=== PATIENT | female | born 1950 | race Caucasian/White ===

== ENCOUNTER 2020-02-05 09:55 | Outpatient (REF) | payer MEDICARE, OTHER, SELFPAY | END 2020-02-05 09:56 | disposition home or self-care (01) | LOC: HO.WFDLDS 09:55 | PROVIDERS: PCP Internal Medicine; Visit Provider Internal Medicine | DX: Z20.828 Contact with and (suspected) exposure to other viral communicable diseases (principal) | CPT/HCPCS: C9803; U0003 ==

== ENCOUNTER 2022-12-11 01:26 | Emergency (ER) | payer MEDICARE, OTHER, SELFPAY ==
--- NOTE | ~2022-12-11 | US_ITS ---
EXAMINATION: US VENOUS ULTRASOUND WITH DOPPLER LOWER EXTREMITY, LEFT CLINICAL INFORMATION: Left calf pain COMPARISON: None available. TECHNIQUE: Ultrasound of the deep veins is performed from the hip to the calf with compression sonography and color and pulse Doppler assessment. Spectral analysis with color-flow imaging is performed. FINDINGS: There is normal venous compression and respiratory variation and augmented flow. The visualized common femoral vein, superficial femoral vein, profunda femoral vein, popliteal vein, and the trifurcation region shows no evidence of deep venous thrombosis. There is no significant popliteal fossa cyst. If the patient's symptoms persist, followup ultrasound in 5 days 7 days might be of value to exclude proximal propagation from a non-visualized calf vein. US/US venous duplex LE LT IMPRESSION: No DVT demonstrated in the left lower extremity.
[2022-12-11 01:31] VITALS: BP 160/71; PULSE 86; RESP 16; TEMP 36.8; O2SAT 98; BMI 26.9
[2022-12-11 01:44] VITALS: BP 165/71; PULSE 88; RESP 18; TEMP 37.2; O2SAT 97
[2022-12-11 01:54] LABS: MANUAL DIFF FLAG NO
[2022-12-11 01:57] LABS: Basophils Percent Auto 0.5 % (0-2); Eosinophils Absolute Auto 0.2 X10*3/uL (0.0-0.4); Eosinophils Percent Auto 2.9 % (0-4); Hematocrit 39.6 % (37.0-47.0); Hemoglobin 13.4 g/dl (12.0-16.0); Imm Gran Abs Auto 0.01 X10*3/uL (0.00-0.03); Imm Gran Pct Auto 0.2 % (0.0-0.4); Lymphocytes Absolute Auto 1.8 X10*3/uL (1.2-4.9); Lymphocytes Percent Auto 29.1 % (20-40); Mean Corpuscular HGB Conc 33.8 g/dl (31.0-35.0); Mean Corpuscular Hemoglobin 30.4 pg (27.0-33.0); Mean Corpuscular Volume 89.8 fL (80.0-98.0); Mean Platelet Volume 10.7 fL (9.4-12.3); Monocytes Absolute Auto 0.6 X10*3/uL (0.1-1.2); Neutrophils Absolute Auto 3.5 x10*3/uL (2.0-8.3); Neutrophils Percent Auto 57.3 % (45-73); Platelet Count 184 X10*3/uL (160-400); Red Blood Count 4.41 X10*6/uL (4.20-5.50); Red Cell Distribution Width 11.9 % (11.0-16.0); White Blood Count 6.1 X10*3/uL (4.8-10.8)
[2022-12-11 02:11] LABS: Appearance Urine Clear; Color Urine Yellow; Glucose Urine UA Negative (Negative); Leukocyte Esterase Urine Small (1+) (Negative); Nitrite Urine Negative (Negative); PH 5.5 (5.0-9.0); UMIC TRIGGER UACC YES; Urine Blood Negative (Negative); Urine Ketones Negative (Negative); Urine Protein Negative (Neg-Trace)
[2022-12-11 02:14] LABS: Anion Gap 18 (12-20); Blood Urea Nitrogen 17 mg/dL (9-16); Calcium 9.9 mg/dL (8.4-10.2); Carbon Dioxide 22 mmol/L (22-29); Chloride 108 mmol/L (96-108); Creatinine Clr Calc Pharmacy 59.1; Estimated Glomerular Filt Rate > 60; Glucose Random 138 mg/dL (60-115); Potassium 3.7 mmol/L (3.3-5.1); Sodium 144 mmol/L (135-145)
[2022-12-11 02:17] LABS: Bacteria Urine None Seen (None Seen); Hyaline Casts Urine 0-2 /LPF (0-2); RBC Urine 0-2 /HPF (0-2); Squamous Epithelial Cell Urine 0-2 /HPF (0-2); UACC Culture Trigger YES
[2022-12-11 02:20] LABS: Troponin-I High Sensitivity < 2.7 ng/L (<3.5-17.0)
[2022-12-11 04:11] VITALS: BP 149/71; PULSE 78; RESP 16; TEMP 37.1; O2SAT 96
--- NOTE | 2022-12-11 05:06 | ED.EXTPRO ---
HPI - Extremity Problem General Chief complaint: Extremity Problem Stated complaint: Left leg pain Time Seen by Provider: 12/11/22 04:51 Source: patient and family Mode of arrival: ambulatory Limitations: no limitations History of Present Illness HPI Narrative: 72-year-old female who presents emergency department for evaluation of left calf pain. Patient states that she went to [facility] 3 days prior, she traveled by train, she states that it was a [address]. She states that yesterday morning at 05:00 hours she woke up with left calf pain. She states the pain is a constant throbbing pain which has moved up her leg and is now also in the back of her leg. She states that her leg does not feel swollen but the back of her knee does feel swollen. He she states she took Tylenol without any relief. She denied fever, chills, chest pain, shortness of breath, dyspnea on exertion. She took Tylenol yesterday at around 17:00 hours with no relief for pain. Related Data Previous Rx's Medication Instructions Recorded oxycodone 5 mg tablet 5 mg PO Q4H PRN pain #14 tabs 12/11/22 Allergies Allergy/AdvReac Type Severity Reaction Status Date / Time No Known Allergies Allergy Unverified 11/15/19 15:56 Review of Systems Review of Systems: Yes all other systems are reviewed and are negative [facility] Past Medical History [facility] Narrative: Past medical history: Hypertension, hyperlipidemia. Surgical history: Hysterectomy-patient does not remember why she got the hysterectomy, small-bowel obstruction secondary to adhesions. Social history: She is and her is here in the emergency department with her. She denies tobacco use. She occasionally drinks alcohol. She denies drug use. Social History Social History Alcohol intake: current Alcohol intake frequency: holidays/special occasions only Smoked in Last 30 Days: No Use of substances other than those prescribed or required for medical reasons: No Advance Directives: No Advance Directives Information Provided: No Physical Exam Vital Signs: Vital Signs: Last Vital Signs Temp 98.4 F 12/11/22 06:21 Pulse 70 12/11/22 06:21 Resp 14 12/11/22 06:21 BP 118/65 12/11/22 06:21 Pulse Ox 96 12/11/22 06:21 O2 Del Method Room Air 12/11/22 06:21 BMI result Body Mass Index 26.9 Vital signs revealed an elevated blood pressure of 149/71 exam: General: Awake, alert in no distress Head: Normocephalic, atraumatic EENT: PERRL, Lids normal, sclera normal, conjunctiva normal, nose normal , ears normal, throat without erythema or exudates Neck: Supple, no adenopathy, trachea midline and nontender Lung: breath sounds symmetric, no wheezing, rales or rhonchi Chest: symmetric movement, nontender Heart: regular rate and rhythm, normal S1, S2 no murmurs or rubs Abdomen: soft, non-tender, nondistended, normal bowel sounds Back: no vertebral tenderness, no CVAT Extremities: Extremities appear to be symmetric, she does have varicose veins to both lower extremities. There is tenderness palpation of the posterior calf and the patella fossa with no erythema, increased warmth or palpable cords. Skin: no rashes, no lesion, normal color and warmth Neuro: Awake, alert, oriented, normal speech, cranial nerves intact, moves all extremities symmetrically Psych: Pleasant, cooperative Medications Administered Discontinued Medications Generic Name Dose Route Start Last Admin Trade Name Alexq PRN Reason Stop Dose Admin Acetaminophen 975 mg 12/11/22 05:06 12/11/22 05:13 Acetaminophen 325 Mg Tablet PO 12/11/22 05:07 975 mg ONCE STA Administration Oxycodone HCl 5 mg 12/11/22 05:06 12/11/22 05:13 Oxycodone Hcl Immed Release 5 Mg Tablet PO 12/11/22 05:07 5 mg ONCE STA Administration Medical Decision Making Medical Decision Making [facility] Narrative: 72-year-old female with history of hypertension, hyperlipidemia who presents emergency department for evaluation of left calf and posterior patella pain x1 day, patient had a recent train trip to [facility] with a total round trip of 6 hours. Vital signs were normal except for elevated blood pressure. The patient did have tenderness palpation of her left posterior calf as well as her left popliteal fossa. Following evaluation was ordered: CBC, CMP, troponin, EKG, duplex ultrasound. patient was ordered to get Tylenol 975 mg and oxycodone 5 mg orally for her pain. 06:35 patient's laboratory evaluation was unremarkable. Duplex ultrasound of the left lower extremity did not reveal any evidence for DVT. Patient did get pain relief after being treated With the above pain medications. Patient's symptoms are most likely secondary to musculoskeletal sprain however I did tell her that a DVT cannot be ruled out with 1 ultrasound and she needs a repeat ultrasound in 4-7 days to rule out propagation of undetected clot. I also told the patient that if she develops symptoms such as fever, chills, cough, pleuritic chest pain, shortness of breath, dyspnea on exertion she should return to the emergency department for re-evaluation. Differential Diagnosis Differential Diagnoses: The differential diagnosis associated with the presentation includes Differential diagnosis includes was not limited to calf DVT, thigh DVT, thrombophlebitis, muscle sprain Admission/Observation Consideration of admission/observation: Escalation of care including admission/observation considered Lab Data MDM Lab Attestation statement: I reviewed the patient's lab results. my interpretation patient's laboratory evaluation is as follows: CBC was normal. BMP was normal. troponin was not elevated. Urinalysis and microscopic was nondiagnostic for urinary tract infection 12/11/22 01:49 12/11/22 01:49 Labs: Lab Results 12/11/22 12/11/22 Range/Units 01:49 01:59 WBC 6.1 (4.8-10.8) X10*3/uL RBC 4.41 (4.20-5.50) X10*6/uL Hgb 13.4 (12.0-16.0) g/dl Hct 39.6 (37.0-47.0) % MCV 89.8 (80.0-98.0) fL MCH 30.4 (27.0-33.0) pg MCHC 33.8 (31.0-35.0) g/dl RDW 11.9 (11.0-16.0) % Plt Count 184 (160-400) X10*3/uL MPV 10.7 (9.4-12.3) fL Immature Gran % (Auto) 0.2 (0.0-0.4) % Neut % (Auto) 57.3 (45-73) % Lymph % (Auto) 29.1 (20-40) % [place] % (Auto) 10.0 (2-11) % Eos % (Auto) 2.9 (0-4) % Baso % (Auto) 0.5 (0-2) % Lymph # (Auto) 1.8 (1.2-4.9) X10*3/uL [place] # (Auto) 0.6 (0.1-1.2) X10*3/uL Eos # (Auto) 0.2 (0.0-0.4) X10*3/uL Baso # (Auto) 0.0 (0.0-0.2) X10*3/uL Abs Immat Gran (auto) 0.01 (0.00-0.03) X10*3/uL Absolute Neuts (auto) 3.5 (2.0-8.3) x10*3/uL Absolute Nucleated RBC 0.000 (0.0-0.012) X10*3/uL Nucleated RBC % (auto) 0.0 (0.0-0.2) /100WBC Hold Blue Top SEE NOTE Sodium 144 (135-145) mmol/L Potassium 3.7 (3.3-5.1) mmol/L Chloride 108 (96-108) mmol/L Carbon Dioxide 22 (22-29) mmol/L Anion Gap 18 (12-20) BUN 17 H (9-16) mg/dL Creatinine 0.92 (0.5-1.4) mg/dL Estim Creat Clear Calc 59.1 Estimated GFR > 60 Random Glucose 138 H (60-115) mg/dL Calcium 9.9 (8.4-10.2) mg/dL Troponin I High Sens < 2.7 (<3.5-17.0) ng/L Urine Color Yellow Urine Appearance Clear Urine pH 5.5 (5.0-9.0) Ur Specific [place] 1.020 (1.005-1.025) Urine Protein Negative (Neg-Trace) mg/dL Urine Glucose (UA) Negative (Negative) mg/dL Urine Ketones Negative (Negative) mg/dL Urine Blood Negative (Negative) Urine Nitrite Negative (Negative) Ur Leukocyte Esterase Small (1+) H (Negative) Urine RBC 0-2 (0-2) /HPF Urine WBC 6-10 H (0-5) /HPF Ur Squamous Epith Cells 0-2 (0-2) /HPF Urine Bacteria None Seen (None Seen) Hyaline Casts 0-2 (0-2) /LPF Radiology Impression Discussion of test interpretation with radiology: I have reviewed the radiologist's reading. Radiologist Impression: US venous duplex LE LT IMPRESSION: No DVT demonstrated in the left lower extremity. Dictated By: Jesus Maldonado MD Independent Historian Clinical information obtained from an independent historian. History obtained from or confirmed by: Spouse External Record Review External record reviewed: Other ( [place] prescription monitoring program -patient has had no prescription for narcotic medications in over a year) Prescription Management I considered prescription management with: Pain Medication Chronic Conditions Patient?s care impacted by: Hypertension and Other ( Hyperlipidemia) Discharge Plan Discharge Clinical Impression: Pain of left calf Patient Disposition: Home, Self-Care Instructions: Leg Pain (ED) Additional Instructions: Your blood work was unremarkable. The duplex ultrasound of your left lower extremity did not reveal any blood clot which is reassuring However, you will need a repeat ultrasound in 4-7 days to make sure that there was not a small blood clot that was too small to detect today. Small blood clots could grow over time so it is important to get a repeat ultrasound to make sure we did not missed anything. Call your doctor on Tuesday morning to schedule a repeat ultrasound next week between Tuesday and Tuesday. Please return to the emergency department if you developed symptoms of a blood clot in your lungs which would include fever, chills, cough, coughing up blood, chest pain that is worse with breathing, shortness of breath, shortness of breath with exertion or any other symptoms that are concerning to you. Take ibuprofen 200 mg pills, 2 pills every 6 hours as needed for pain. Take Tylenol (acetaminophen) 500 mg pills, 2 pills every 4-6 hours as needed for pain. For pain not relieved by ibuprofen or Tylenol take oxycodone 5 mg pills, 1 pill every 4 hours as needed for pain. Do not drive or work while taking this medication since they can cause sleepiness. Oxycodone is a narcotic medication that can be addicting. If you are concerned about addiction you can ask the pharmacist for less pills or do not get this prescription filled. Prescriptions: New oxycodone 5 mg tablet 5 mg PO Q4H PRN (Reason: pain) Qty: 14 0RF Rx Instructions: Patient may request partial fill; Partial Fill upon patient request.
[2022-12-11] MEDS: oxyCODONE HCl Immed Release 5 MG TABLET PO (05:13)
[2022-12-11] MEDS: Acetaminophen 325 MG TABLET 975 MG PO (05:13)
--- NOTE | 2022-12-11 05:38 | PC.NURSE ---
pt returned from ultrasound, resting comfortably at this time. at bedside
[2022-12-11 06:21] VITALS: BP 118/65; PULSE 70; RESP 14; TEMP 36.9; O2SAT 96
== END 2022-12-11 06:47 | disposition home or self-care (01) ==
PROVIDERS: Emergency Provider Emergency Medicine Emergency Medical Services; PCP Internal Medicine
DX: M79.605 Pain in left leg (principal); R82.90 Unspecified abnormal findings in urine
CPT/HCPCS: 36415; 80048; 81001; 84484; 85025; 87086; 93971; 99283; 99284

== ENCOUNTER 2022-12-16 15:07 | Outpatient (REF) | payer MEDICARE, OTHER, SELFPAY ==
--- NOTE | ~2022-12-16 | US_ITS ---
EXAMINATION: US VENOUS ULTRASOUND WITH DOPPLER LOWER EXTREMITY, LEFT CLINICAL INFORMATION: Pain in the leg. COMPARISON: None available. TECHNIQUE: Ultrasound of the deep veins is performed from the hip to the calf with compression sonography and color and pulse Doppler assessment. Spectral analysis with color-flow imaging is performed. FINDINGS: There is normal venous compression and respiratory variation and augmented flow. The visualized common femoral vein, superficial femoral vein, profunda femoral vein, popliteal vein, and the trifurcation region shows no evidence of deep venous thrombosis. There is no significant popliteal fossa cyst. If the patient's symptoms persist, followup ultrasound in 5 days 7 days might be of value to exclude proximal propagation from a non-visualized calf vein. US/US venous duplex LE IMPRESSION: No DVT demonstrated in the left lower extremity.
== END 2022-12-16 15:08 | disposition home or self-care (01) ==
LOC: HO.US 15:07
PROVIDERS: PCP Internal Medicine; Visit Provider Internal Medicine
DX: M79.605 Pain in left leg (principal)
CPT/HCPCS: 93971

== ENCOUNTER 2024-04-13 08:09 | Emergency (ER) | payer MEDICARE, OTHER, SELFPAY ==
--- NOTE | ~2024-04-13 | XR_ITS ---
EXAMINATION: XR FOOT 3 OR MORE VIEWS LEFT HISTORY: pain COMPARISON: There are no prior studies available for comparison. FINDINGS: Three views of the left foot are submitted. Osseous mineralization is normal. There is no fracture or dislocation. The joint spaces are preserved. The soft tissues are unremarkable. XR/XR foot LT min 3V IMPRESSION: Unremarkable examination of the left foot. Electronically signed by: Sharif Ochoa MD 04/13/2024 09:10 AM NOE
[2024-04-13 08:12] VITALS: BP 101/74; PULSE 96; RESP 18; TEMP 36.1; O2SAT 97; BMI 26.8
--- NOTE | 2024-04-13 09:29 | ED.EXTPRO ---
HPI - Extremity Problem General Chief complaint: Extremity Problem Stated complaint: L foot pain Time Seen by Provider: 04/13/24 09:10 Source: patient Mode of arrival: ambulatory Limitations: no limitations History of Present Illness ED Provider: Miladys Arroyo PA-C HPI Narrative: 74 yo female presenting for evaluation of non-traumatic left foot pain. She reports the pain started 2 days ago at night. Pain is located in the arch of the left foot and radiates up the left anterior lower leg with movement of the foot. Pain is worse at night. She denies swelling. No skin changes. No injury that she can recall. She is on her feet a lot of the day caring for her mother. She usually wears slippers at home. MD Complaint: extremity pain Onset (ago): day(s) Pain Consistency: constant Location: left Quality: stabbing and aching Radiation: proximal Relieving factors: rest Exacerbating factors: range of motion, weight bearing, walking and palpation Associated symptoms: denies other symptoms Related Data Previous Rx's ?Medication ?Instructions ?Recorded oxycodone 5 mg tablet 5 mg PO Q4H PRN pain #14 tabs 12/11/22 naproxen 500 mg tablet 500 mg PO BID PRN pain #20 tabs 04/13/24 Allergies Allergy/AdvReac Type Severity Reaction Status Date / Time No Known Allergies Allergy Verified 04/13/24 08:15 Review of Systems Review of Systems: Yes all other systems are reviewed and are negative [facility], [facility] Social History Social History Alcohol intake: current Alcohol intake frequency: holidays/special occasions only Advance Directives: Yes Advance Directives Information Provided: Yes Advance Directives on File: No Physical Exam Vital Signs: Vital Signs: Last Vital Signs Temp 96.9 F 04/13/24 09:46 Pulse 96 04/13/24 09:46 Resp 18 04/13/24 09:46 BP 101/74 04/13/24 09:46 Pulse Ox 97 04/13/24 08:12 O2 Del Method Room Air 04/13/24 08:12 BMI result Body Mass Index 26.8 Appearance: Alert. Oriented X3. No acute distress. HEENT: normal inspection CVS: Normal heart rate and rhythm. Pulses normal. Respiratory: No respiratory distress. Skin: Skin warm and dry. Normal skin color. Normal skin turgor. No rashes. Extremities: left foot with mild swelling at the arch of the foot with associated tenderness of the soft tissues. no ecchymosis. no swelling or tenderness of the medial or lateral malleoli or heel. pain with plantarflexion and dorsiflexion. no swelling or tenderness of the left calf. Neuro: Oriented X 3. No motor deficit. No sensory deficit. Medical Decision Making Medical Decision Making MDM Narrative: 74 yo female presenting with pain in the arch of the left foot for the last few days, no injury or trauma. XR normal. exam and clinical presentation most c/w plantar fascitis. discussed dx and tx. 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 stable for d/c home with supportive care and outpatient f/u PRN. Differential Diagnosis Differential Diagnoses: The differential diagnosis associated with the presentation includes plantar fascitits, ankle sprain, DVT, foot fracture, foot sprain Independent Interpretation I performed an independent interpretation of an: Plain X-Ray Interpretation: no acute fracture in the foot appreciated Radiology Impression Discussion of test interpretation with radiology: I have reviewed the radiologist's reading. External Record Review External record reviewed: Outpatient record and Prior outpatient labs Prescription Management I considered prescription management with: Pain Medication Critical Care Time Critical Care Time Critical Care Time: No Discharge Plan Discharge Clinical Impression: Plantar fasciitis Patient Disposition: Home, Self-Care Instructions: Plantar Fasciitis (ED), Plantar Fasciitis Exercises (ED) Additional Instructions: Your x-ray today was normal. Rest and elevate your foot when possible. Recommend BRAIN wrap for support and compression. Use ice several times per day for the next 48 hours. Use a frozen water bottle. Take the prescribed anti-inflammatory as directed and/or Tylenol as needed for pain. Wear a supportive shoe with good arch support, recommend inserts from the pharmacy. Follow up with your doctor and podiatry. If you develop new or worsening symptoms call 911 or come back to the ER for further evaluation. Prescriptions: New naproxen 500 mg tablet 500 mg PO BID PRN (Reason: pain) Qty: 20 0RF No Action oxycodone 5 mg tablet 5 mg PO Q4H PRN (Reason: pain) Qty: 14 0RF Rx Instructions: Patient may request partial fill; Partial Fill upon patient request. Referrals: Mason Covington MD [Primary Care Provider] - Interventions: ED Discharge Assessment Last Done: 04/13/24 09:46 Discharge Date/Time: 04/13/24 09:47 Print Language: Citizen Of [place]
[2024-04-13 09:46] VITALS: BP 101/74; PULSE 96; RESP 18; TEMP 36.1
== END 2024-04-13 09:47 | disposition home or self-care (01) ==
PROVIDERS: Emergency Provider Emergency Medicine; PCP Internal Medicine
DX: M72.2 Plantar fascial fibromatosis (principal); M79.672 Pain in left foot
CPT/HCPCS: 73630; 99282; 99283

== ENCOUNTER → 2024-04-13 08:40 | Outpatient (BNV) | payer MEDICARE, OTHER, SELFPAY | PROVIDERS: Emergency Provider Emergency Medicine; PCP Internal Medicine; Visit Provider Radiology Diagnostic Radiology | DX: M79.672 Pain in left foot (principal) | CPT/HCPCS: 73630 ==